=== PATIENT | male | born 1975 | race Caucasian/White ===

== ENCOUNTER 2017-07-18 10:34 | Emergency (ER) | payer OTHER, BC ==
[2017-07-18 10:55] VITALS: BP 117/68
--- NOTE | 2017-07-18 11:07 | ERNOTE ---
Upper Extremity HPI - General Extremities Pain Location: thumb: right Time Seen by Provider: 07/18/17 11:00 Source: patient Exam Limitations: no limitations - Immun/Allergies/Home Medications Immunizations: IMMUNIZATION HX Immunizations Up to Date Yes History of Influenza Vaccine No Hx Pneumococcal Vaccination No Allergies/Adverse Reactions: Allergies Allergy/AdvReac Type Severity Reaction Status Date / Time allergy medication - unknown AdvReac Mild Pain Uncoded 07/18/17 10:57 name. Home Medications: HOME MEDICATIONS Levothyroxine Sodium [Synthroid] 50 mcg PO DAILY 07/18/17 [Last Taken Unknown] Naproxen [Naprosyn] 500 mg PO BID #60 tablet 07/18/17 [Last Taken Unknown] - History of Present Illness Narrative: Patient is doing fairly extensive shoveling yesterday and started to notice that his right thumb developed fairly significant pain and is having difficulty grasping things with that hand area. With any use he rates the pain as severe with any use of the hand and specifically the right thumb the pain flares up. Occurred: yesterday Location of Incident: work Severity: moderate, severe Method of Injury: Reports: other - repetitive use Loss of Consciousness: Reports: no loss of consciousness Modifying Factors - (Improves): Reports: rest Modifying Factors - (Worsens): Reports: movement Other Injuries: Reports: none Review of Systems - Review of Systems Constitutional: Present: See HPI EYE: Present: no symptoms reported ENT: Present: no symptoms reported Respiratory: Present: no symptoms reported Cardiology: Present: no symptoms reported Gastrointestinal/Abdominal: Present: no symptoms reported Genitourinary: Present: no symptoms reported Musculoskeletal: Present: joint pain, joint swelling - pain and swelling in the right thumb Skin: Present: no symptoms reported Neurological: Present: no symptoms reported Endocrine: Present: no symptoms reported Hematologic/Lymphatic: Present: no symptoms reported Psych: Present: no symptoms reported - Patient's Past Medical History Patient History - Medical: Hypothyroidism Patient History - Cardiac/Respiratory: No pertinent hx Patient History - Cancer: No Hx of Cancer Patient History - Surgical Procedures: Back Surgery, Other Patient History - Other: None - Social History Living Situations: home Psych History: No pertinent hx Smoking Status: Current every day smoker - Immunizations Immunizations Up to Date: Yes Hx Pneumococcal Vaccination: No History of Influenza Vaccine: No Physical Exam - Physical Exam General Appearance: Present: wd/wn, alert, moderate distress, severe distress - moderate to severe pain with any use of the right thumb Head Exam: Present: normal inspection, no evidence of injury Eye Exam: Normal inspection: bilateral, PERRL: bilateral Ears, Nose, Throat: Present: normal ENT inspection, H, normal pharynx Neck: Present: normal inspection, nontender Respiratory: Present: no respiratory distress, normal breath sounds, no accessory muscle use, chest nontender, lungs clear Cardiovascular/Chest: Present: regular rate, rhythm, no murmur, normal peripheral pulses Gastrointestinal/Abdominal: Present: normal bowel sounds, nontender, nondistended, soft, no organomegaly Rectal Exam: Present: deferred Back Exam: Present: normal inspection, normal range of motion Extremity Exam: Present: decreased range of motion, other - patient appears to have a positive de Quervain's Neurological Exam: Present: alert, oriented, normal mood/affect Skin Exam: Present: normal color, warm/dry Lymphatic Exam: Present: no adenopathy ED Progress - Vital Signs Patient's Vital Signs:: I have reviewed the patient's vital signs. Vital Signs: Vital Signs 07/18/17 10:40 Temperature 36.6 C Pulse Rate 77 Respiratory 18 Rate Blood Pressure 117/68 O2 Sat by Pulse 98 Oximetry - X-Ray X-Ray #1 X-Ray: right thumb Interpretation: Reviewed by me - Progress/Reassessment Chief Complaint: Upper Extremity Injury/Problem Plan - Plan Plan: Patient appears to have irritation of his tendon on his right thumb and is showing symptoms of a de Quervain's tenosynovitis. We'll be placed in a thumb spica splint, started on Naprosyn and will give him an orthopedic referral. As this is work comp he will have to follow-up with the work, physician as well. Departure Clinical Impression: Tenosynovitis, De Quervain's tenosynovitis - Departure Disposition: Home self-care Condition: Good Instructions: De Quervain Tenosynovitis Referrals: Edgard Montes MD [Staff Physician] - Prescriptions: Naproxen [Naprosyn] 500 mg PO BID #60 tablet
== END 2017-07-18 12:09 | disposition home or self-care (01) ==
LOC: ER 10:34
PROC: 2W3GX1Z Immobilization of Right Thumb using Splint (ICD-10-PCS; principal; 2017-07-18)
DX: M65.4 Radial styloid tenosynovitis [de Quervain] (principal); F17.200 Nicotine dependence, unspecified, uncomplicated; E03.9 Hypothyroidism, unspecified; Y93.H1 Activity, digging, shoveling and raking; Y92.69 Other specified industrial and construction area as the place of occurrence of the external cause; Y99.0 Civilian activity done for income or pay